=== PATIENT | female | born 2000 | race Caucasian/White ===

== ENCOUNTER → 2022-03-18 15:00 | Outpatient (BNVA) | payer OTHER, SELFPAY | PROVIDERS: Visit Provider Physician Assistant Medical | DX: S93.492A Sprain of other ligament of left ankle, initial encounter (principal); X50.1XXA Overexertion from prolonged static or awkward postures, initial encounter | CPT/HCPCS: 73610; 99203 ==

== ENCOUNTER → 2022-04-03 09:47 | Outpatient (BNVA) | payer OTHER, SELFPAY | PROVIDERS: Visit Provider Physician Assistant | DX: S93.402A Sprain of unspecified ligament of left ankle, initial encounter (principal) | CPT/HCPCS: 99202 ==

== ENCOUNTER → 2022-05-01 14:50 | Outpatient (BNVA) | payer OTHER, SELFPAY | PROVIDERS: Visit Provider Physician Assistant | DX: S93.402A Sprain of unspecified ligament of left ankle, initial encounter (principal) | CPT/HCPCS: 99212 ==

== ENCOUNTER 2022-05-16 10:00 | Outpatient (RCR) | payer OTHER, SELFPAY | END 2022-05-30 15:13 | disposition home or self-care (01) | LOC: HO.PT 10:00 | PROVIDERS: Visit Provider Physician Assistant | DX: S93.402D Sprain of unspecified ligament of left ankle, subsequent encounter (principal) | CPT/HCPCS: 97110; 97161; 97530 ==

== ENCOUNTER 2024-09-07 00:20 | Emergency (ER) | payer OTHER, SELFPAY ==
[2024-09-07 00:29] VITALS: BP 122/92; PULSE 104; RESP 20; TEMP 36.1; O2SAT 98; BMI 21.3
--- NOTE | 2024-09-07 00:43 | PC.NURSE ---
assumed care of pt. UA provided, red tinted, pt expresses pain with urination in lower abdomen.
[2024-09-07 00:45] VITALS: BP 120/86; PULSE 86; RESP 16; TEMP 37.1; O2SAT 97
--- NOTE | 2024-09-07 01:03 | ED_ITS ---
HPI - General Adult General Chief complaint: General Medical Stated complaint: blood in urine Time Seen by Provider: 09/07/24 01:01 Source: patient Mode of arrival: ambulatory Limitations: no limitations History of Present Illness ED Provider: Rainer ONEIL HPI narrative: The patient is a 24-year-old female presenting to the ED reporting around 16:00 today she began experiencing lower abdominal pain followed by hematuria and dysuria at approximately 21:00. Patient reports previous episode of hematuria with a previous UTI, denies recent UTI. The patient denies associated fever/chills, nausea, vomiting, flank pain, chest pain, shortness of breath, recent sick contacts, or recent trauma. The patient reports last menstrual period was approximately 1 month ago, denies any intermenstrual bleeding. Tonight the patient denies associated constipation, diarrhea, hematochezia, melena, irregular vaginal bleeding, or vaginal discharge. The patient reports symptoms are presenting similarly to her previous UTI. Related Data Previous Rx's ?Medication ?Instructions ?Recorded nitrofurantoin 100 mg PO BID #10 caps 09/07 monohydrate/macrocrystals 100 mg capsule (Macrobid) phenazopyridine 100 mg tablet 100 mg PO TID PRN pain 6 doses #6 09/07/24 (Pyridium) tabs Allergies Allergy/AdvReac Type Severity Reaction Status Date / Time No Known Allergies Allergy Verified 09/07/24 00:32 Review of Systems Review of Systems: Yes all other systems are reviewed and are negative PMFSH Social History Social History Alcohol intake: never Patient Tobacco Use Status: Never used Tobacco Advance Directives: No Do you have a plan to hurt others: No Plan Patient : No Current occupational status: employed Physical Exam ED Vital Signs: Vital Signs - 24 hr 09/07/24 00:29 09/07/24 00:45 Temperature 97.0 F 97.0 F Pulse Rate 104 H 104 H Respiratory Rate 20 20 Blood Pressure 122/92 H 122/92 H Pulse Oximetry 98 98 Oxygen Delivery Method Room Air Room Air BMI result Body Mass Index 21.3 CONSTITUTIONAL: The patient appears non-toxic, well nourished and in no acute distress. Vital signs as documented. HEAD: Atraumatic, normocephalic. EYES: EOMs grossly intact, pupils equal, conjunctiva clear, no exudate. ENT: Nares patent, no discharge. Airway patent, no audible stridor, visible mucosa is pink and moist without noted lesions. NECK: Trachea is midline, no obvious masses or gross abnormalities. CHEST: Symmetric movement, normal appearance. LUNGS: LS present and CTAB, no w/r/r. Non-labored work of breathing. CARDIAC: Regular Rhythm, S1/S2 appreciated, no murmurs, rubs or gallops. ABDOMEN: Abdomen soft and non-tender x4 quadrants, there is mild suprapubic tenderness noted, negative rebound, no palpable masses or organomegaly. No CVAT bilaterally. : Deferred. EXTREMITIES: Normal tone, moves all extremities spontaneously without reported pain. No obvious acute injury or deformity noted. NEURO: Alert and oriented x3, CN II-XII appear grossly intact. Cerebellar Functioning grossly intact. No obvious sensory or motor deficits. Speech clear and appropriate. PSYCH: normal affect, appropriate eye contact, fluid speech, with appropriate re sponse to questioning. No reported suicidality or homicidality. SKIN: Warm, dry, color appropriate, normal turgor. No rashes noted. Medical Decision Making Medical Decision Making [facility] Narrative: 1:54 AM 09/07/2024 (Odilia ONEIL): The patient is a 24-year-old female presenting to the ED for evaluation of lower abdominal pain with associated hematuria and dysuria which began around 21:00 tonight. The patient reports presentation is similar to her previous UTI. The patient in the ED is in no acute distress, exam is benign, mild suprapubic abdominal pain, otherwise benign abdominal exam. There is no associated CVAT bilaterally, no concern for obstructing ureteral stone or pyelonephritis. The patient denies any associated irregular vaginal bleeding or vaginal discharge. Patient's urinalysis shows proteinuria, leukocyte esterase, bacteria, and blood. Given the patient's urinary symptoms a nd abnormal UA patient will be treated with Macrobid and Pyridium for suspected UTI. Patient has been educated to follow up with PCP regarding urine culture. Differential Diagnosis Differential Diagnoses: The differential diagnosis associated with the presentation includes UTI, pyelonephritis, ureteral stone, PID, STI Admission/Observation Consideration of admission/observation: Escalation of care including admission/observation considered Lab Data [facility] Lab Attestation statement: I reviewed the patient's lab results. Labs: Lab Results 09/07/24 Range/Units 00:50 Urine Color RED Urine Appearance Hazy Urine pH 7.0 (5.0-9.0) Ur Specific [place] 1.025 (1.005-1.025) Urine Protein 300 (3+) H (Neg-Trace) mg/dL Urine Glucose (UA) Negative (Negative) mg/dL Urine Ketones Trace (Negative) mg/dL Urine Blood Moderate (2+) H (Negative) Urine Nitrite Negative (Negative) Ur Leukocyte Esterase Small (1+) H (Negative) Urine RBC >20 H (0-2) /HPF Urine WBC 21-50 (0-5) /HPF Ur Squamous Epith Cells 11-20 (0-2) /HPF Urine Bacteria 2+ (None Seen) Hyaline Casts 0-2 (0-2) /LPF Urine Test NEGATIVE (NEGATIVE) Prescription Management I considered prescription management with: Pain Medication and Antibiotic Discharge Plan Discharge Clinical Impression: UTI (urinary tract infection) Qualifiers: Urinary tract infection type: acute cystitis Hematuria presence: with hematuria Qualified Code(s): N30.01 - Acute cystitis with hematuria Patient Disposition: Home, Self-Care Instructions: Urinary Tract Infection in Women (ED) Additional Instructions: Thank you for choosing [facility]'s Emergency Department for your care today. Your symptoms, exam, and urinalysis today are consistent with a urinary tract infection. At this time there is no evidence of an acute process requiring admission to the hospital or continued ED observation, and it is safe to discharge you home. Please take Pyridium and Macrobid as prescribed until finished. You may take alternating (staggered) doses of ibuprofen 600mg and Tylenol 1000mg every 4 hours as needed for any additional pain. Please stay well hydrated and get plenty of rest. Please follow up with your primary care physician for re-evaluation, review of your urine culture and antibiotic selection, additional management of your symptoms, and continued preventative care. If you do not have a primary care physician, please call the [facility] at [phone] to establish a new primary care physician. While waiting to establish your new primary care physician, you can call our [facility] at [phone] for non-emergency needs. Please return to the emergency department if you develop a severe or sudden change in your symptoms, a fever over 100.4 that does not improve with Tylenol or Ibuprofen, recurrent vomiting, or any other new or worsening symptoms or concerns. Prescriptions: New nitrofurantoin monohyd/m-cryst [Macrobid] 100 mg capsule 100 mg PO BID Qty: 10 0RF Rx Instructions: must administer with a meal/food phenazopyridine [Pyridium] 100 mg tablet 100 mg PO TID PRN (Reason: pain) Qty: 6 0RF Print Language: Georgian
[2024-09-07 01:20] LABS: Appearance Urine Hazy; Glucose Urine UA Negative (Negative); PH 7.0 (5.0-9.0); Specific Gravity - Urine 1.025 (1.005-1.025); UMIC TRIGGER UACC YES
[2024-09-07 01:29] LABS: UPreg QC Valid YES
[2024-09-07 01:34] LABS: UACC Culture Trigger YES
[2024-09-07 02:15] VITALS: BP 122/92; PULSE 104; RESP 20; TEMP 36.1; O2SAT 98
== END 2024-09-07 02:18 | disposition home or self-care (01) ==
PROVIDERS: Emergency Provider Emergency Medicine
DX: N30.01 Acute cystitis with hematuria (principal); R10.30 Lower abdominal pain, unspecified
CPT/HCPCS: 81001; 81003; 81025; 87086; 87088; 87186; 99283; 99284

== ENCOUNTER 2025-01-04 21:51 | Emergency (ER) | payer OTHER, SELFPAY ==
[2025-01-04 21:57] VITALS: BP 147/87; PULSE 98; RESP 20; TEMP 36.9; O2SAT 98; BMI 20.1
--- NOTE | 2025-01-04 22:06 | PC.NURSE ---
Pt refusing lab work at this time, in agreement to give UA, pt aware the provider may want her to get lab work, will assess once in a room. Labs cancelled at this time.
[2025-01-04 22:21] LABS: Appearance Urine Clear; Glucose Urine UA Negative (Negative); PH 6.0 (5.0-9.0); Specific Gravity - Urine 1.025 (1.005-1.025); UMIC TRIGGER UACC YES
[2025-01-04 22:23] LABS: UPreg QC Valid YES
[2025-01-04 22:53] LABS: UACC Culture Trigger YES
--- NOTE | 2025-01-04 22:56 | ED.GENADULT ---
HPI - General Adult General Chief complaint: General Medical Stated complaint: UTI? Time Seen by Provider: 01/04/25 22:40 Source: patient Mode of arrival: ambulatory Limitations: no limitations History of Present Illness ED Provider: Dr. Hollie Henao HPI narrative: Patient comes to the emergency room complaining of dysuria, no hematuria, no back pain or flank pain. Patient states that she has had multiple UTIs, related to sexual intercourse. A month ago she was treated with cephalexin the UTI resolved. However, she has a new UTI. Related Data Previous Rx's ?Medication ?Instructions ?Recorded nitrofurantoin 100 mg PO BID #10 caps 09/07/24 monohydrate/macrocrystals 100 mg capsule (Macrobid) phenazopyridine 100 mg tablet 100 mg PO TID PRN pain 6 doses #6 09/07/24 (Pyridium) tabs cephalexin 250 mg capsule 250 mg PO BID 14 days #28 caps 01/04/25 nitrofurantoin 100 mg PO ONCE PRN uti #20 caps 01/04/25 monohydrate/macrocrystals 100 mg capsule (Macrobid) Allergies Allergy/AdvReac Type Severity Reaction Status Date / Time No Known Allergies Allergy Verified 01/04/25 21:57 Review of Systems Review of Systems: Constitutional : No Weight loss, No Fever, No Chills, No Night Sweats, No Fatigue, No Malaise ENT/Mouth : No Hearing loss, No Ear Pain, No Nasal Congestion, No Sinus Pain, No Hoarseness, No sore throat, No Rhinorrhea, No Swallowing Difficulty Eyes: No Eye Pain, No Swelling, No Redness, No Foreign Body, No Discharge, No Vision Changes Cardiovascular : No Chest Pain, No SOB, No Dyspnea on Exertion, No Orthopnea, No Edema, No Palpitations Respiratory : No Cough, No Sputum, No Wheezing, No Smoke Exposure, No Dyspnea Gastrointestinal : No Nausea, No Vomiting, No Diarrhea, No Constipation, No abdominal Pain, No Hematochezia, No Melena Genitourinary : no irregular bleeding, complaining of Dysuria, No Urinary Frequency, No Hematuria, No Urinary Incontinence, No Urgency, No Flank Pain, No Urinary Flow Changes, No Hesitancy Musculoskeletal : No joint pain, No Myalgias, No Joint Swelling Skin : No Skin Lesions, No rash Neuro : No Weakness, No Numbness, No Paresthesias, No Loss of Consciousness, No Dizziness, No Headache Psych : No Anxiety/Panic, No Depression, No SI/HI/AH/VH, No Social Issues, Heme/Lymph: No Bruising, No Bleeding,No Lymphadenopathy Endocrine : No Polyuria, No Polydipsia, No Temperature Intolerance [facility] Social History Social History Alcohol intake: never Patient Tobacco Use Status: Never used Tobacco Advance Directives: No Advance Directives Information Provided: No Current occupational status: employed Physical Exam ED Exam Exam: Appearance: Alert. Oriented X3. No acute distress. Eyes: Pupils equal, round and reactive to light. ENT: Pharynx normal. Neck: Normal inspection. Neck supple. No lymph nodes noted. No crepitus CVS: Normal heart rate and rhythm. Pulses normal. Normal S1 and S2 Respiratory: No respiratory distress. Breath sounds normal. No Wheezing. No rales Abdomen: Soft and nontender. No rigidity. No distention. Skin: Skin warm and dry. Normal skin color. Normal skin turgor. Extremities: No lower extremity edema. No Lacerations. No Rash Neuro: Oriented X 3. No motor deficit. No sensory deficit. Moving all extremities. No slurred speech. CN 2 through 12 grossly intact Psych: calm, cooperative, normal affect Vital Signs: Vital Signs - 24 hr 01/04/25 21:57 Temperature 98.5 F Pulse Rate 98 Respiratory Rate 20 Blood Pressure 147/87 H Pulse Oximetry 98 Oxygen Delivery Method Room Air BMI result Body Mass Index 20.1 Medical Decision Making Medical Decision Making [facility]DM Narrative: Patient's urinalysis positive for UTI Patient declined blood work Patient has no flank pain back pain or fever, sepsis for pyelonephritis is not suspected. Lab Data Labs: Lab Results 01/04/25 Range/Units 22:07 Urine Color Dark Yellow Urine Appearance Clear Urine pH 6.0 (5.0-9.0) Ur Specific [place] 1.025 (1.005-1.025) Urine Protein 30 (1+) H (Neg-Trace) mg/dL Urine Glucose (UA) Negative (Negative) mg/dL Urine Ketones Negative (Negative) mg/dL Urine Blood Large (3+) H (Negative) Urine Nitrite Positive H (Negative) Ur Leukocyte Esterase Moderate (2+) H (Negative) Urine Test NEGATIVE (NEGATIVE) Discharge Plan Discharge Clinical Impression: UTI (urinary tract infection) Patient Disposition: Home, Self-Care Instructions: Urinary Tract Infection in Women (ED) Additional Instructions: Please follow-up with your primary care physician tomorrow. If you have any worsening or new symptoms, please return to the emergency room or call 911 Prescriptions: New cephalexin 250 mg capsule 250 mg PO BID 14 Days Qty: 28 0RF nitrofurantoin monohyd/m-cryst [Macrobid] 100 mg capsule 100 mg PO ONCE PRN (Reason: uti) Qty: 20 0RF Rx Instructions: use after sexual intercourse, one tablet PO No Action nitrofurantoin monohyd/m-cryst [Macrobid] 100 mg capsule 100 mg PO BID Qty: 10 0RF Rx Instructions: must administer with a meal/food phenazopyridine [Pyridium] 100 mg tablet 100 mg PO TID PRN (Reason: pain) Qty: 6 0RF Print Language: Citizen [place]
[2025-01-04 23:24] VITALS: BP 112/48; PULSE 67; RESP 166; TEMP 36.7; O2SAT 98
== END 2025-01-04 23:26 | disposition home or self-care (01) ==
PROVIDERS: Emergency Provider Emergency Medicine
DX: N39.0 Urinary tract infection, site not specified (principal); R30.0 Dysuria
CPT/HCPCS: 81001; 81025; 87086; 87088; 87186; 99282; 99283

== ENCOUNTER 2025-01-31 22:32 | Emergency (ER) | payer OTHER, SELFPAY ==
[2025-01-31 22:34] VITALS: BP 146/88; PULSE 100; RESP 16; TEMP 36.7; O2SAT 97; BMI 20.7
--- NOTE | 2025-01-31 22:41 | ED_ITS ---
HPI - Female Genitourinary General Chief complaint: Urogenital-Female Stated complaint: Urinary Symptoms Time Seen by Provider: 01/31/25 22:40 Source: patient Mode of arrival: ambulatory Limitations: no limitations History of Present Illness ED Provider: Dr. Tirado [facility] Narrative: 24-year-old female presented hospital today for bladder pressure sensation and dysuria. Patient was recently diagnosed with a UTI 2 weeks ago. She was placed on 250 mg Keflex twice a day for 14 days. Patient stated that she has not been compliant with this medication. She is complaining of dysuria still. She is still sexually active at this time. No flank pain no fever. No nausea no vomiting. Related Data Previous Rx's ?Medication ?Instructions ?Recorded nitrofurantoin 100 mg PO BID #10 caps 09/07 monohydrate/macrocrystals 100 mg capsule (Macrobid) phenazopyridine 100 mg tablet 100 mg PO TID PRN pain 6 doses #6 09/07/24 (Pyridium) tabs cephalexin 250 mg capsule 250 mg PO BID 14 days #28 ca ps 01/04/25 nitrofurantoin 100 mg PO ONCE PRN uti #20 c aps 01/04/25 monohydrate/macrocrystals 100 mg capsule (Macrobid) sulfamethoxazole 800 1 tab PO BID 7 days #14 tabs 01/31/25 mg-trimethoprim 160 mg tablet (Bactrim DS) Allergies Allergy/AdvReac Type Severity Reaction Status Date / Time No Known Allergies Allergy Verified 01/31/25 22:38 Review of Systems Review of Systems: Pertinent review of systems as mentioned in HPI. All other system otherwise negative. [facility] Past Medical History [facility] Narrative: Medical history as mentioned in [facility] Social History Social History Alcohol intake: never Patient Tobacco Use Status: Never used Tobacco Current occupational status: employed Physical Exam Exam: Exam: General: Pleasant, no distress, interacting appropriately Head: Normacephalic, atraumatic Neurological: Awake and alert, no facial droop noted Skin: Warm and dry Psychiatric: Appropriate mood and thoughts Vital Signs: Vital Signs: Last Vital Signs Temp 98.1 F 01/31/25 22:34 Pulse 100 01/31/25 22:34 Resp 16 01/31/25 22:34 BP 146/88 H 01/31/25 22:34 Pulse Ox 97 01/31/25 22:34 O2 Del Method Nasal Cannula 01/31/25 22:34 BMI result Body Mass Index 20.7 Medical Decision Making Medical Decision Making [facility] Narrative: 24-year-old female presented hospital today for suprapubic bladder pressure and dysuria. UA did show some signs of a UTI. We will plan to give patient a dose of Bactrim here. I did review her sensitivity from previous urine culture. It is sensitive to Bactrim. We will plan to discharge patient with a course of Bactrim to take for her UTI. Encouraged abstinence during the treatment at this UTI at this time. Patient is well. It does not appear to be toxic. Denies vaginal bleeding or discharge. Patient will be discharged. Differential Diagnosis Differential Diagnoses: The differential diagnosis associated with the presentation includes UTI, pyelonephritis, STD Lab Data [facility] Lab Attestation statement: I reviewed the patient's lab results. Labs: Lab Results 01/31/25 Range/Units 22:45 Urine Color [place] Urine Appearance Clear Urine pH 6.0 (5.0-9.0) Ur Specific [place] 1.025 (1.005-1.025) Urine Protein See Note (Neg-Trace) mg/dL Urine Glucose (UA) 100 H (Negative) mg/dL Urine Ketones See Note (Negative) mg/dL Urine Blood Trace (Negative) Urine Nitrite See Note (Negative) Ur Leukocyte Esterase Negative (Negative) Urine RBC 3-5 H (0-2) /HPF Urine WBC 6-10 H (0-5) /HPF Ur Squamous Epith Cells 11-20 (0-2) /HPF Urine Bacteria Trace (None Seen) Hyaline Casts 0-2 (0-2) /LPF Urine Yeast Present Urine Test NEGATIVE (NEGATIVE) External Record Review External record reviewed: Prior outpatient labs Discharge Plan Discharge Clinical Impression: UTI (urinary tract infection) Qualifiers: Urinary tract infection type: acute cystitis Hematuria presence: without hematuria Qualified Code(s): N30.00 - Acute cystitis without hematuria Patient Disposition: Home, Self-Care Instructions: Urinary Tract Infection in Women (ED) Prescriptions: New sulfamethoxazole-trimethoprim [Bactrim DS] 800-160 mg tablet 1 tab PO BID 7 Days Qty: 14 0RF No Action nitrofurantoin monohyd/m-cryst [Macrobid] 100 mg capsule 100 mg PO BID Qty: 10 0RF Rx Instructions: must administer with a meal/food phenazopyridine [Pyridium] 100 mg tablet 100 mg PO TID PRN (Reason: pain) Qty: 6 0RF cephalexin 250 mg capsule 250 mg PO BID 14 Days Qty: 28 0RF nitrofurantoin monohyd/m-cryst [Macrobid] 100 mg capsule 100 mg PO ONCE PRN (Reason: uti) Qty: 20 0RF Rx Instructions: use after sexual intercourse, one tablet PO Print Language: Upper Sorbian
[2025-01-31 22:56] LABS: Appearance Urine Clear; Glucose Urine UA 100 mg/dL (Negative); PH 6.0 (5.0-9.0); Specific Gravity - Urine 1.025 (1.005-1.025); UMIC TRIGGER UACC YES
[2025-01-31 22:58] LABS: UPreg QC Valid YES
[2025-01-31 23:12] LABS: UACC Culture Trigger YES
[2025-01-31] MEDS: Sulfamethox/Trimeth 800/160 TABLET 1 TAB PO (23:27)
[2025-02-01] VITALS: BP 137/84; PULSE 80; RESP 16; TEMP 36.9; O2SAT 98
[2025-02-01 00:09] VITALS: BP 137/84; PULSE 80; RESP 16; TEMP 36.9; O2SAT 98
== END 2025-02-01 00:10 | disposition home or self-care (01) ==
LOC: HO.ED 02-01 00:08
PROVIDERS: Emergency Provider Student in an Organized Health Care Education/Training Program
DX: N30.00 Acute cystitis without hematuria (principal); R30.0 Dysuria
CPT/HCPCS: 81001; 81025; 87086; 99283